=== PATIENT | female | born 1975 | race Caucasian/White ===

== ENCOUNTER → 2017-10-07 | Outpatient (CLI) | payer BC ==
--- NOTE | ~2017-10-07 | EKG ---
[place], [place] ELECTROCARDIOGRAM REPORT NAME: DIANA ANAND UNIT #: [id number] ROOM: DOCTOR: EPIPHANY DRAFT REPORT BIRTHDATE: [birth year] [facility] Test Date: 2017-10-07 Test Time: 11:21:14 Pat Name: DIANA ANAND Department: Room: Gender: F Belt Turner: : 1975 Requested By: HAROLDO STARR Order Number: [id number] Reading MD: James Pike MD Measurements Intervals Moore Rate: 79 P: 38 NC: 130 QRS: 54 QRSD: 77 T: 30 QT: 395 QTc: 453 Interpretive Statements Sinus rhythm Minimal ST depression, inferior leads Electronically Signed On 10-09-2017 8:51:39 PDT by James Pike MD CM:EKGRPT:ELECTROCARDIOGRAM REPORT [id number] HAROLDO STARR EPIPHANY DRAFT REPORT HAROLDO STARR
== END | disposition home or self-care (01) ==
LOC: RAD 10:59
DX: R06.02 Shortness of breath (principal); R05 Cough; I10 Essential (primary) hypertension

== ENCOUNTER → 2017-11-23 | Outpatient (CLI) | payer BC | END | disposition home or self-care (01) | LOC: CARD 13:00 | DX: R01.1 Cardiac murmur, unspecified (principal) ==

== ENCOUNTER 2020-10-21 06:27 | Emergency (ER) | payer BC ==
[~2020-10-21] VITALS: Ht 177.8 cm; Wt 86.2 kg
[2020-10-21] MEDS ORDERED: PREDNISONE20 M1 PO (07:01)
== END 2020-10-21 07:16 | disposition home or self-care (01) ==
LOC: ED 06:27
DX: L30.9 Dermatitis, unspecified (principal)

== ENCOUNTER → 2022-02-07 | Outpatient (CLI) | payer BC ==
[~2022-02-07] MED LIST: PREDNISONE20 M1 PO
== END | disposition home or self-care (01) ==
LOC: RAD 16:50
PROVIDERS: ATTEND Nurse Practitioner Family
DX: J45.20 Mild intermittent asthma, uncomplicated (principal); F41.9 Anxiety disorder, unspecified; M54.50 Low back pain, unspecified; I10 Essential (primary) hypertension

== ENCOUNTER → 2023-11-18 | Outpatient (CLI) | payer OTHER ==
[2023-11-18 10:07] LABS: BASO # 0.1 10*3/uL (0.0-0.1); BASO % 0.7 % (0.0-1.0); EOS # 0.1 10*3/uL (0.0-0.4); HEMATOCRIT 42.8 % (37.0-47.0); LYMPH # 2.5 10*3/uL (1.3-4.4); LYMPH % 36.1 % (27.0-41.0); MEAN CELL VOLUME 89.5 fl (81.0-99.0); MEAN CORPUSCULAR HGB 29.5 pg (27.0-31.0); MEAN CORPUSCULAR HGB CONC 32.9 g/dl (33.0-37.0); MONO # 0.5 10*3/uL (0.1-1.0); MONO % 7.5 % (3.0-9.0); NEUT # 3.7 10*3/uL (2.3-7.9); NEUT % 53.6 % (47.0-73.0); PLATELET COUNT AUTOMATED 285 10*3/uL (130-400); RED BLOOD COUNT 4.78 10*6/uL (4.10-5.10); RED CELL DISTRI WIDTH 12.3 % (0-14.5); WHITE BLOOD COUNT 6.9 10*3/uL (4.8-10.8)
[2023-11-18 10:41] LABS: ALKALINE PHOSPHATASE 56 U/L (46-116); BUN 9 mg/dl (9-23); CHLORIDE 107 mmol/L (98-107); CHOLESTEROL 188 mg/dL (<200); LDL CHOLESTEROL 112 mg/dL (9-159); POTASSIUM 4.3 mmol/L (3.4-5.1); SGPT/ALT 11 U/L (5-49); TOTAL PROTEIN 6.9 gm/dL (6.0-8.0); TRIGLYCERIDES 76 mg/dl (<150)
== END | disposition home or self-care (01) ==
LOC: LAB 09:50
PROVIDERS: ATTEND Nurse Practitioner Family
DX: I10 Essential (primary) hypertension (principal); F41.9 Anxiety disorder, unspecified

== ENCOUNTER → 2024-01-15 | Outpatient (CLI) | payer OTHER | END | disposition home or self-care (01) | LOC: RHCWE 17:50 | PROVIDERS: ATTEND Nurse Practitioner Family | DX: Z01.419 Encounter for gynecological examination (general) (routine) without abnormal findings (principal) ==